=== PATIENT | male | born 1965 | race Caucasian/White ===

== ENCOUNTER 2022-06-01 15:35 | Inpatient (IN) | payer SELFPAY ==
[2022-06-01] MEDS ORDERED: Dextrose 5% in Water 1,000 ML IV PRN (17:20)
[2022-06-01] MEDS ORDERED: Guaifenesin DM 100-10/5 ML UDCUP PO PRN (17:20)
[2022-06-01] MEDS ORDERED: Ondansetron PF 4 MG/2 ML Vial IVP PRN (17:20)
[2022-06-01] MEDS ORDERED: Acetaminophen 325 MG TAB PO PRN (17:20)
[2022-06-01] MEDS ORDERED: Senokot S 8.6-50 MG TAB PO PRN (17:20)
[2022-06-01] MEDS ORDERED: Dextrose 50% Abboject 50 ML SYRINGE SLOW IVP PRN (17:20)
[2022-06-01] MEDS ORDERED: Sodium Chloride 0.9% 1,000 ML IV SCH (17:30)
[2022-06-01 17:37] VITALS: BMI 23.3
[2022-06-01] MEDS ORDERED: Aspirin Chewable 81 MG TAB PO SCH (18:00)
[2022-06-01 19:04] LABS: Anion Gap 15 mmol/L (10-20); BUN (Urea Nitrogen) 33 mg/dL (8.4-25.7); Calc. Creatinine Clearance 46 mL/min (70-130); Calcium 9.8 mg/dL (7.8-10.44); Carbon Dioxide 25 mmol/L (22-29); Chloride 100 mmol/L (98-107); Estimated GFR 40; Glucose 257 mg/dL (70-105); Potassium 4.3 mmol/L (3.5-5.1); Sodium 136 mmol/L (136-145)
[2022-06-01 19:16] LABS: Troponin I 0.341 ng/mL (< 0.028)
[2022-06-01] MEDS: Nitroglycerin 0.4 MG TAB (25 Tab Bottle) SL PRN ×2 (21:00→23:55)
[2022-06-01 21:18] LABS: Troponin I 0.427 ng/mL (< 0.028)
[2022-06-01] MEDS: Enoxaparin Sodium 80 MG/0.8 ML SYRINGE SC SCH ×2 (22:12→22:13)
[2022-06-01] MEDS: Gabapentin 300 MG CAP PO SCH (22:13)
[2022-06-01] MEDS: Insulin Glargine 30 UNITS/0.3 ML VIAL SC SCH (22:14)
[2022-06-01] MEDS: Atorvastatin Calcium 40 MG TAB PO SCH (22:14)
[2022-06-02] MEDS: Morphine 2 MG/ML VIAL SLOW IVP PRN ×2 (01:52→07:20)
[2022-06-02 04:40] LABS: #Basophils 0.1 thou/uL (0.0-0.2); #Eosinphils 0.1 thou/uL (0.0-0.7); #Lymphocytes 1.5 thou/uL (1.20-3.40); #Monocytes 0.9 thou/uL (0.11-0.59); #Neutrophils 6.4 thou/uL (1.40-6.50); %Basophils 1.5 % (0.0-1.0); %Eosinophils 0.8 % (0.0-10.0); %Lymphocytes 16.6 % (21.0-51.0); %Monocytes 10.1 % (0.0-10.0); Hemoglobin 11.8 g/dL (14.0-18.0); Mean Corpuscular HGB CONC 32.6 g/dL (32.0-36.0); Mean Corpuscular Hemoglobin 29.1 pg (27.0-31.0); Mean Corpuscular Volume 89.2 fL (78.0-98.0); Mean Platelet Volume 8.9 fL (7.4-10.4); Platelet Count 236 thou/uL (130-400); RBC Distribution Width 13.5 % (11.5-14.5); Red Blood Cell (RBC) Count 4.07 mill/uL (4.70-6.10)
[2022-06-02 05:04] LABS: ALT (SGPT) 21 U/L (8-55); AST (SGOT) 17 U/L (5-34); Albumin 3.7 g/dL (3.5-5.0); Alkaline Phosphatase 108 U/L (40-110); Anion Gap 20 mmol/L (10-20); BUN (Urea Nitrogen) 33 mg/dL (8.4-25.7); Bilirubin, Total 0.6 mg/dL (0.2-1.2); Calc. Creatinine Clearance 43 mL/min (70-130); Calcium 9.5 mg/dL (7.8-10.44); Carbon Dioxide 21 mmol/L (22-29); Chloride 99 mmol/L (98-107); Cholesterol 148 mg/dl (< 200 Desired); Estimated GFR 37; Globulin 3.7 g/dL (2.4-3.5); Glucose 506 mg/dL (70-105); HDL Cholesterol 49 mg/dL (>60 Neg Risk); LDL Cholesterol, Calculated 78 mg/dL; Potassium 4.3 mmol/L (3.5-5.1); Protein, Total 7.4 g/dL (6.0-8.3); Sodium 136 mmol/L (136-145); Triglycerides 104 mg/dL (Less than 150)
[2022-06-02] MEDS: HumaLOG 300 UNITS/3 ML VIAL SC PRN ×4 (07:02→21:09)
[2022-06-02 08:23] LABS: Bilirubin Negative (Negative); Blood, Urine 1+ (Negative); Clarity Extra Turbid (Clear); Glucose, Urine (Dipstick) Greater than 1000 mg/dL (Negative); Ketone, Urine 60 mg/dL (Negative); Leukocyte 500 Leu/uL (Negative); Nitrite Negative (Negative); Protein, Urine (Dipstick) 20 mg/dL (Neg-Trace); Specific Gravity, Urine 1.013 (1.002-1.036); Squamous Epithelial 0-3 HPF (0-3); Urobilinogen Normal mg/dL (Less than 2); WBC/HPF Greater than 50 HPF (0-3); pH, Urine 5.5 (5.0-9.0)
[2022-06-02 08:24] LABS: Bacteria/HPF Rare-Few HPF (None Seen); Yeast-Budding 1+ HPF (None Seen)
[2022-06-02 08:25] LABS: Yeast-Hyphae Rare HPF (None Seen)
[2022-06-02 08:26] LABS: Urine Culture Reflex Yes Yes
[2022-06-02] MEDS ORDERED: Iopamidol 370 76% 100 ML VIAL ONE (08:52)
[2022-06-02] MEDS ORDERED: Enoxaparin Sodium 40 MG/0.4 ML SYRINGE SC SCH (09:00)
[2022-06-02] MEDS: Gabapentin 300 MG CAP PO SCH ×2 (09:07→21:08)
[2022-06-02] MEDS: Carvedilol 3.125 MG TAB PO SCH ×2 (09:08→17:27)
[2022-06-02] MEDS: Aspirin Chewable 81 MG TAB PO SCH (09:08)
[2022-06-02] MEDS: Insulin Glargine 30 UNITS/0.3 ML VIAL SC SCH ×2 (09:09→21:10)
[2022-06-02] MEDS ORDERED: Lidocaine 1% MPF 2 ML VIAL ONE (10:52)
[2022-06-02] MEDS ORDERED: Morphine 4 MG/ML VIAL ONE (12:19)
[2022-06-02] MEDS ORDERED: Metoprolol Tartrate 5 MG/5 ML VIAL ONE (12:35)
[2022-06-02] MEDS: Atorvastatin Calcium 40 MG TAB PO SCH (21:08)
[2022-06-03 04:53] LABS: Anion Gap 13 mmol/L (10-20); BUN (Urea Nitrogen) 24 mg/dL (8.4-25.7); Calc. Creatinine Clearance 50 mL/min (70-130); Calcium 9.3 mg/dL (7.8-10.44); Carbon Dioxide 25 mmol/L (22-29); Chloride 111 mmol/L (98-107); Estimated GFR 44; Glucose 133 mg/dL (70-105); Potassium 3.8 mmol/L (3.5-5.1); Sodium 145 mmol/L (136-145)
[2022-06-03 05:13] LABS: Band 1 % (5-11); Eosinophils 6 % (0-10); Hypochromia SLIGHT = 6-15 cells (100X) (0-5/hpf); Lymphocytes 17 % (21-51); MDiff Complete? YES; Mean Corpuscular HGB CONC 32.7 g/dL (32.0-36.0); Mean Corpuscular Hemoglobin 29.4 pg (27.0-31.0); Mean Corpuscular Volume 89.9 fL (78.0-98.0); Mean Platelet Volume 8.6 fL (7.4-10.4); Monocytes 13 % (0-10); Neutrophil 63 % (42-75); Platelet Count 220 thou/uL (130-400); Platelet Morphology Comment Appears Adequate; RBC Distribution Width 13.6 % (11.5-14.5); Red Blood Cell (RBC) Count 3.73 mill/uL (4.70-6.10); White Blood Cell (WBC) Count 7.7 thou/uL (4.8-10.8)
[2022-06-03] MEDS ORDERED: Carvedilol 3.125 MG TAB PO SCH (07:00)
[2022-06-03] MEDS: Carvedilol 6.25 MG TAB PO SCH ×2 (09:15→17:25)
[2022-06-03] MEDS: Aspirin Chewable 81 MG TAB PO SCH (09:15)
[2022-06-03] MEDS: Gabapentin 300 MG CAP PO SCH ×2 (09:15→22:19)
[2022-06-03] MEDS: Insulin Glargine 30 UNITS/0.3 ML VIAL SC SCH ×2 (09:16→22:20)
[2022-06-03] MEDS: HumaLOG 300 UNITS/3 ML VIAL SC PRN ×3 (11:33→23:55)
[2022-06-03] MEDS: Atorvastatin Calcium 40 MG TAB PO SCH (22:19)
[2022-06-04 04:52] LABS: Anion Gap 12 mmol/L (10-20); BUN (Urea Nitrogen) 26 mg/dL (8.4-25.7); Calc. Creatinine Clearance 41 mL/min (70-130); Carbon Dioxide 26 mmol/L (22-29); Chloride 107 mmol/L (98-107); Estimated GFR 35; Glucose 167 mg/dL (70-105); Potassium 3.8 mmol/L (3.5-5.1); Sodium 141 mmol/L (136-145)
[2022-06-04 05:12] LABS: Band 2 % (5-11); Eosinophils 6 % (0-10); Hemoglobin 10.3 g/dL (14.0-18.0); Lymphocytes 29 % (21-51); MDiff Complete? YES; Mean Corpuscular HGB CONC 33.2 g/dL (32.0-36.0); Mean Corpuscular Hemoglobin 29.3 pg (27.0-31.0); Mean Corpuscular Volume 88.2 fL (78.0-98.0); Mean Platelet Volume 8.3 fL (7.4-10.4); Monocytes 14 % (0-10); Neutrophil 45 % (42-75); Platelet Count 214 thou/uL (130-400); Platelet Morphology Comment Appears Adequate; RBC Distribution Width 13.4 % (11.5-14.5); RBC Morphology Normal; Reactive Lymphocytes 2 % (0-10); Red Blood Cell (RBC) Count 3.52 mill/uL (4.70-6.10); White Blood Cell (WBC) Count 6.7 thou/uL (4.8-10.8)
[2022-06-04] MEDS ORDERED: Diazepam 5 MG TAB PO PRN (08:27)
[2022-06-04] MEDS ORDERED: Communication Order-Pharmacy FS SCH (08:27)
[2022-06-04] MEDS: Carvedilol 6.25 MG TAB PO SCH ×2 (09:47→17:48)
[2022-06-04] MEDS: Gabapentin 300 MG CAP PO SCH ×2 (09:47→21:10)
[2022-06-04] MEDS: Aspirin Chewable 81 MG TAB PO SCH (09:47)
[2022-06-04] MEDS: Insulin Glargine 30 UNITS/0.3 ML VIAL SC SCH ×2 (10:12→21:10)
[2022-06-04] MEDS: HumaLOG 300 UNITS/3 ML VIAL SC PRN ×2 (11:20→21:11)
[2022-06-04] MEDS: Atorvastatin Calcium 40 MG TAB PO SCH (21:10)
[2022-06-05] MEDS ORDERED: Dextrose 50% Abboject 50 ML SYRINGE ONE (04:11)
[2022-06-05] MEDS ORDERED: Dextrose 50% Abboject 50 ML SYRINGE SLOW IVP SCH (04:15)
[2022-06-05 04:54] LABS: Anion Gap 12 mmol/L (10-20); BUN (Urea Nitrogen) 27 mg/dL (8.4-25.7); Calc. Creatinine Clearance 45 mL/min (70-130); Calcium 9.3 mg/dL (7.8-10.44); Carbon Dioxide 27 mmol/L (22-29); Chloride 106 mmol/L (98-107); Estimated GFR 39; Potassium 3.5 mmol/L (3.5-5.1); Sodium 141 mmol/L (136-145)
[2022-06-05 05:07] LABS: Glucose 29 mg/dL (70-105)
[2022-06-05] MEDS: Carvedilol 6.25 MG TAB PO SCH (05:45)
[2022-06-05] MEDS ORDERED: fentaNYL Citrate/PF 100 MCG/2 ML SYRINGE ONE (05:58)
[2022-06-05] MEDS ORDERED: EPINEPHrine 1 MG/ML AMP ONE (05:59)
[2022-06-05] MEDS ORDERED: Midazolam HCl 5 mg/5 ml Vial ONE (05:59)
[2022-06-05] MEDS ORDERED: niCARdipine 25 MG/10 ML VIAL ONE (05:59)
[2022-06-05] MEDS ORDERED: Esmolol 100 MG/10 ML VIAL ONE (05:59)
[2022-06-05] MEDS ORDERED: Norepinephrine 4 MG/4 ML VIAL ONE (05:59)
[2022-06-05] MEDS ORDERED: Rocuronium Bromide 50 MG/5 ML VIAL ONE ×2 (06:00→06:08)
[2022-06-05] MEDS ORDERED: Insulin Regular 300 UNITS/3 ML VIAL ONE ×2 (06:00→06:08)
[2022-06-05] MEDS ORDERED: PHENYLEPHRINE-NS 100 MCG/ML 10 ML SYRINGE ONE (06:38)
[2022-06-05] MEDS ORDERED: Dexamethasone 4 mg/ml Vial ONE (06:38)
[2022-06-05] MEDS ORDERED: Bupivacaine/Epinephrine 0.25% 30 ML VIAL ONE (06:38)
[2022-06-05] MEDS ORDERED: Albumin 5% 500 ML ONE (06:38)
[2022-06-05] MEDS ORDERED: Heparin 10,000 UNITS/1 ML VIAL 30,000 UNITS in Sodium Chloride 0.9% 1,000 ML FS SCH (07:00)
[2022-06-05] MEDS ORDERED: Heparin 1,000 UNITS/ML VIAL ONE (07:04)
[2022-06-05] MEDS ORDERED: CEFAZOLIN 2 GM in Sodium Chloride 0.9% 100 ML IVPB SCH (07:30)
[2022-06-05] MEDS ORDERED: Cardioplegic Soln 1,000 ML BAG ONE (07:39)
[2022-06-05] MEDS ORDERED: Papaverine 60 MG/2 ML VIAL ONE (07:39)
[2022-06-05] MEDS ORDERED: PROPOFOL 200 MG/20 ML VIAL ONE ×2 (07:39→12:49)
[2022-06-05] MEDS ORDERED: Rocuronium Bromide 10 MG/ML (10ML VIAL) ONE ×2 (07:39→12:49)
[2022-06-05] MEDS ORDERED: Lidocaine 2% PF 100 mg/5 ml Syringe ONE (07:39)
[2022-06-05] MEDS ORDERED: Magnesium Sulfate 1 GM/2 ML VIAL ONE (07:39)
[2022-06-05] MEDS ORDERED: Mannitol 12.5 GM/50 ML ONE (07:39)
[2022-06-05] MEDS ORDERED: Sodium Bicarb 50 MEQ/50 ML Abboject 8.4% SYRINGE ONE (07:39)
[2022-06-05] MEDS ORDERED: Thrombin 5000 UNITS/5 ML VIAL ONE (07:39)
[2022-06-05] MEDS ORDERED: Heparin 30,000 units/30 ml VIAL ONE (07:39)
[2022-06-05] MEDS ORDERED: Aminocaproic Acid 5 GM/20 ML VIAL ONE (07:39)
[2022-06-05] MEDS ORDERED: Lidocaine 1% MPF 2 ML VIAL ONE ×2 (07:39→12:49)
[2022-06-05] MEDS ORDERED: Protamine Sulfate 250 MG/25 ML VIAL ONE (07:39)
[2022-06-05] MEDS ORDERED: Calcium Chloride 1 GM/10 ML Abboject SYRINGE ONE (07:39)
[2022-06-05] MEDS ORDERED: Heparin 5,000 UNITS/ML VIAL ONE (07:39)
[2022-06-05 08:50] LABS: Band 1 % (5-11); Eosinophils 11 % (0-10); Hemoglobin 11.5 g/dL (14.0-18.0); Lymphocytes 29 % (21-51); MDiff Complete? YES; Mean Corpuscular HGB CONC 32.9 g/dL (32.0-36.0); Mean Corpuscular Hemoglobin 29.6 pg (27.0-31.0); Mean Platelet Volume 8.5 fL (7.4-10.4); Monocytes 7 % (0-10); Neutrophil 42 % (42-75); Ovalocytes SLIGHT = 2-5 cells (100X) (0-1/hpf); Platelet Count 260 thou/uL (130-400); Platelet Morphology Comment Appears Adequate; Polychromasia SLIGHT = 2-3 cells (100X) (0-2/hpf); RBC Distribution Width 13.4 % (11.5-14.5); Reactive Lymphocytes 6 % (0-10); Red Blood Cell (RBC) Count 3.87 mill/uL (4.70-6.10)
[2022-06-05] MEDS ORDERED: Dexmedetomidine 200 MCG/2 ML VIAL ONE (09:21)
[2022-06-05] MEDS ORDERED: hydrALAZINE 20 MG/ML VIAL SLOW IVP PRN (11:00)
[2022-06-05] MEDS ORDERED: Acetaminophen 325 MG TAB PO PRN (11:00)
[2022-06-05] MEDS ORDERED: Ondansetron PF 4 MG/2 ML Vial IVP PRN (11:00)
[2022-06-05] MEDS ORDERED: Mag-Al 1200 mg/1200 mg/30 ML UDCUP PO PRN (11:00)
[2022-06-05] MEDS ORDERED: Bisacodyl 5 MG TAB PO PRN (11:00)
[2022-06-05] MEDS ORDERED: Post-Op Insulin Drip Protocol IVPB ONE (11:00)
[2022-06-05] MEDS ORDERED: Morphine 2 MG/ML VIAL SLOW IVP PRN (11:00)
[2022-06-05] MEDS ORDERED: NOREPINEPHRINE 8 MG/250 ML-D5W 250 ML IVPB PRN (11:00)
[2022-06-05] MEDS ORDERED: Bisacodyl 10 MG SUPP PR PRN (11:00)
[2022-06-05] MEDS ORDERED: Magnesium 2 GM/50 ML(in water) 2 GM in Premix Bag 1 BAG IVPB SCH (11:00)
[2022-06-05] MEDS ORDERED: Hetastarch 6% 500 ML 500 ML IVPB PRN (11:00)
[2022-06-05] MEDS ORDERED: D5 1/2 NS w/20 mEq KCL 1,000 ML IV SCH (11:00)
[2022-06-05] MEDS ORDERED: Guaifenesin DM 100-10/5 ML UDCUP PO PRN (11:00)
[2022-06-05] MEDS ORDERED: Potassium Chloride 20 MEQ/100 ML PREMIX BAG IVPB PRN (11:00)
[2022-06-05] MEDS ORDERED: Nitroglycerin 50 MG/250 ML BOT 250 ML IVPB PRN (11:00)
[2022-06-05] MEDS ORDERED: Promethazine HCl 25 MG/ML VIAL IM PRN (11:00)
[2022-06-05] MEDS ORDERED: Fentanyl 100 MCG/2 ML VIAL SLOW IVP PRN (11:00)
[2022-06-05] MEDS ORDERED: Insulin Regular 300 UNITS/3 ML VIAL SC PRN (11:30)
[2022-06-05] MEDS ORDERED: Dextrose 50% Abboject 50 ML SYRINGE SLOW IVP PRN (11:30)
[2022-06-05] MEDS ORDERED: Dextrose 5% in Water 1,000 ML IV PRN (11:30)
[2022-06-05] MEDS ORDERED: HUMULIN R 100 UNITS in Sodium Chloride 0.9% 100 ML IVPB SCH (11:30)
[2022-06-05 11:35] LABS: ALV-art Gradient 201.075 mmHg (0-20); Base Excess (BEa) -4.2 mEq/L (-2.0 to +3.0); CO2 Tension 38.9 mmHg (35.0-45.0); Calcium, Ionized (arterial) 1.13 mmol/L (1.12-1.30); Carboxyhemoglobin (COHb) 0.3 gm% (0.0-3.0); Hemoglobin (Hb) 10.9 g/dL (14.0-18.0); O2 Tension (PaO2), arterial 106.8 mmHg (80.0-100.0); Potassium - ABG Lab 4.48 mmol/L (3.70-5.30); Puncture Site Arterial Line; pH, Arterial 7.35 (7.35-7.45)
[2022-06-05 11:54] LABS: INR-International Normal Ratio 1.2; PTT 30.1 sec (22.9-36.1); Prothrombin Time 14.8 sec (12.0-14.7)
[2022-06-05 12:01] LABS: #Basophils 0.1 thou/uL (0.0-0.2); #Eosinphils 0.1 thou/uL (0.0-0.7); #Monocytes 1.3 thou/uL (0.11-0.59); #Neutrophils 11.5 thou/uL (1.40-6.50); %Basophils 0.4 % (0.0-1.0); %Eosinophils 0.4 % (0.0-10.0); %Lymphocytes 7.4 % (21.0-51.0); %Monocytes 9.6 % (0.0-10.0); %Neutrophils 82.1 % (42.0-75.0); Hemoglobin 10.2 g/dL (14.0-18.0); Mean Corpuscular HGB CONC 32.9 g/dL (32.0-36.0); Mean Corpuscular Hemoglobin 29.5 pg (27.0-31.0); Mean Corpuscular Volume 89.5 fL (78.0-98.0); Mean Platelet Volume 8.6 fL (7.4-10.4); Platelet Count 181 thou/uL (130-400); RBC Distribution Width 13.5 % (11.5-14.5); Red Blood Cell (RBC) Count 3.46 mill/uL (4.70-6.10)
[2022-06-05 12:10] LABS: Anion Gap 12 mmol/L (10-20); BUN (Urea Nitrogen) 22 mg/dL (8.4-25.7); Calc. Creatinine Clearance 57 mL/min (70-130); Calcium 7.6 mg/dL (7.8-10.44); Carbon Dioxide 21 mmol/L (22-29); Chloride 112 mmol/L (98-107); Estimated GFR 52; Glucose 180 mg/dL (70-105); Potassium 4.5 mmol/L (3.5-5.1); Sodium 140 mmol/L (136-145)
[2022-06-05] MEDS: Fentanyl 100 MCG/2 ML VIAL SLOW IVP PRN ×2 (12:46→15:35)
[2022-06-05] MEDS ORDERED: Dexamethasone 20 MG/5 ML VIAL ONE (12:49)
[2022-06-05] MEDS ORDERED: Ondansetron PF 4 MG/2 ML Vial ONE (12:49)
[2022-06-05] MEDS: CEFAZOLIN 2 GM in Sodium Chloride 0.9% 100 ML IVPB SCH ×2 (15:36→23:17)
[2022-06-05 17:40] LABS: Potassium 4.1 mmol/L (3.5-5.1)
[2022-06-05] MEDS: HYDROcodone/Acetaminophen 5/325 mg Tablet PO PRN ×2 (18:30→21:02)
[2022-06-05] MEDS: Cyclobenzaprine 10 MG TAB PO PRN (18:32)
[2022-06-05] MEDS ORDERED: Famotidine/PF 20 mg/2ml Vial SLOW IVP SCH (21:00)
[2022-06-05] MEDS: Atorvastatin Calcium 40 MG TAB PO SCH (21:01)
[2022-06-06 04:48] LABS: #Lymphocytes 0.9 thou/uL (1.20-3.40); #Monocytes 1.3 thou/uL (0.11-0.59); %Basophils 0.3 % (0.0-1.0); %Eosinophils 0.1 % (0.0-10.0); %Monocytes 9.9 % (0.0-10.0); %Neutrophils 82.7 % (42.0-75.0); Hemoglobin 9.6 g/dL (14.0-18.0); Mean Corpuscular HGB CONC 32.7 g/dL (32.0-36.0); Mean Corpuscular Hemoglobin 29.9 pg (27.0-31.0); Mean Corpuscular Volume 91.6 fL (78.0-98.0); Mean Platelet Volume 9.1 fL (7.4-10.4); Platelet Count 163 thou/uL (130-400); RBC Distribution Width 13.7 % (11.5-14.5); Red Blood Cell (RBC) Count 3.21 mill/uL (4.70-6.10); White Blood Cell (WBC) Count 13.3 thou/uL (4.8-10.8)
[2022-06-06] MEDS: HYDROcodone/Acetaminophen 5/325 mg Tablet PO PRN ×4 (05:00→21:39)
[2022-06-06 05:11] LABS: Anion Gap 10 mmol/L (10-20); BUN (Urea Nitrogen) 23 mg/dL (8.4-25.7); Calc. Creatinine Clearance 54 mL/min (70-130); Calcium 8.3 mg/dL (7.8-10.44); Carbon Dioxide 24 mmol/L (22-29); Chloride 112 mmol/L (98-107); Estimated GFR 48; Glucose 130 mg/dL (70-105); Potassium 4.5 mmol/L (3.5-5.1); Sodium 141 mmol/L (136-145)
[2022-06-06] MEDS: CEFAZOLIN 2 GM in Sodium Chloride 0.9% 100 ML IVPB SCH (06:07)
[2022-06-06] MEDS ORDERED: Dextrose 50% Abboject 50 ML SYRINGE SLOW IVP PRN (07:21)
[2022-06-06] MEDS ORDERED: Dextrose 5% in Water 1,000 ML IV PRN (07:21)
[2022-06-06] MEDS ORDERED: Insulin Regular 300 UNITS/3 ML VIAL SC PRN (07:38)
[2022-06-06] MEDS ORDERED: Metoclopramide HCl 10 MG/2 ML VIAL IVP SCH (07:45)
[2022-06-06] MEDS: Aspirin Chewable 81 MG TAB PO SCH (08:35)
[2022-06-06] MEDS: Cyclobenzaprine 10 MG TAB PO PRN ×3 (08:35→21:40)
[2022-06-06] MEDS: Magnesium 2 GM/50 ML(in water) 2 GM in Premix Bag 1 BAG IVPB SCH (08:35)
[2022-06-06] MEDS ORDERED: Insulin Glargine 30 UNITS/0.3 ML VIAL SC PRN (11:25)
[2022-06-06] MEDS: HumaLOG 300 UNITS/3 ML VIAL SC PRN ×3 (13:32→19:45)
[2022-06-06] MEDS ORDERED: Zolpidem Tartrate 5 MG TAB PO PRN (14:45)
[2022-06-06] MEDS ORDERED: Mineral Oil ENEMA PR PRN (14:45)
[2022-06-06] MEDS ORDERED: Guaifenesin DM 100-10/5 ML UDCUP PO PRN (14:45)
[2022-06-06] MEDS ORDERED: Bisacodyl 10 MG SUPP PR PRN (14:45)
[2022-06-06] MEDS ORDERED: Milk Of Magnesia 30 ML UDCUP PO PRN (14:45)
[2022-06-06] MEDS ORDERED: diphenhydrAMINE 25 MG CAP PO PRN (14:45)
[2022-06-06] MEDS ORDERED: Bisacodyl 5 MG TAB PO PRN (14:45)
[2022-06-06] MEDS ORDERED: Mag-Al 1200 mg/1200 mg/30 ML UDCUP PO PRN (14:45)
[2022-06-06] MEDS: Metoclopramide HCl 10 MG/2 ML VIAL IVP SCH ×3 (15:23→23:28)
[2022-06-06] MEDS: Atorvastatin Calcium 40 MG TAB PO SCH (19:46)
[2022-06-07] MEDS: Metoclopramide HCl 10 MG/2 ML VIAL IVP SCH ×3 (05:03→17:25)
[2022-06-07] MEDS: Fentanyl 100 MCG/2 ML VIAL SLOW IVP PRN (08:24)
[2022-06-07] MEDS: Magnesium 2 GM/50 ML(in water) 2 GM in Premix Bag 1 BAG IVPB SCH (08:26)
[2022-06-07] MEDS: Aspirin Chewable 81 MG TAB PO SCH (08:26)
[2022-06-07] MEDS: Cyclobenzaprine 10 MG TAB PO PRN (11:08)
[2022-06-07] MEDS: HYDROcodone/Acetaminophen 5/325 mg Tablet PO PRN ×2 (11:08→20:49)
[2022-06-07] MEDS: HumaLOG 300 UNITS/3 ML VIAL SC PRN ×3 (11:53→20:59)
[2022-06-07] MEDS ORDERED: Insulin Glargine 30 UNITS/0.3 ML VIAL SC SCH ×2 (12:45→21:00)
[2022-06-07] MEDS ORDERED: Carvedilol 3.125 MG TAB PO SCH (17:00)
[2022-06-07] MEDS: Atorvastatin Calcium 40 MG TAB PO SCH (20:49)
[2022-06-08] MEDS: Metoclopramide HCl 10 MG/2 ML VIAL IVP SCH ×2 (01:48→05:40)
[2022-06-08 04:58] LABS: Anion Gap 14 mmol/L (10-20); BUN (Urea Nitrogen) 30 mg/dL (8.4-25.7); Calc. Creatinine Clearance 42 mL/min (70-130); Calcium 8.7 mg/dL (7.8-10.44); Carbon Dioxide 22 mmol/L (22-29); Chloride 102 mmol/L (98-107); Estimated GFR 36; Glucose 366 mg/dL (70-105); Potassium 4.2 mmol/L (3.5-5.1); Sodium 134 mmol/L (136-145)
[2022-06-08 05:27] LABS: Band 6 % (5-11); Eosinophils 5 % (0-10); Hemoglobin 8.7 g/dL (14.0-18.0); Lymphocytes 15 % (21-51); MDiff Complete? YES; Mean Corpuscular HGB CONC 34.4 g/dL (32.0-36.0); Mean Corpuscular Hemoglobin 30.8 pg (27.0-31.0); Mean Corpuscular Volume 89.6 fL (78.0-98.0); Monocytes 15 % (0-10); Neutrophil 58 % (42-75); Platelet Count 146 thou/uL (130-400); RBC Distribution Width 13.4 % (11.5-14.5); Red Blood Cell (RBC) Count 2.84 mill/uL (4.70-6.10); White Blood Cell (WBC) Count 8.7 thou/uL (4.8-10.8)
[2022-06-08] MEDS: HumaLOG 300 UNITS/3 ML VIAL SC PRN ×2 (05:40→17:10)
[2022-06-08] MEDS: Cyclobenzaprine 10 MG TAB PO PRN ×2 (05:43→13:02)
[2022-06-08] MEDS ORDERED: traMADol HCl 50 MG TAB PO PRN ×2 (07:43)
[2022-06-08] MEDS: Aspirin Chewable 81 MG TAB PO SCH (10:34)
[2022-06-08] MEDS: Carvedilol 6.25 MG TAB PO SCH ×2 (10:35→16:19)
[2022-06-08] MEDS: Clopidogrel Bisulfate 75 MG TAB PO SCH (10:35)
[2022-06-08] MEDS: Insulin Glargine 30 UNITS/0.3 ML VIAL SC SCH ×2 (10:37→20:41)
[2022-06-08] MEDS: Sodium Chloride 0.9% 1,000 ML IV SCH (16:32)
[2022-06-08] MEDS: Atorvastatin Calcium 40 MG TAB PO SCH (20:41)
[2022-06-09 05:14] LABS: Anion Gap 16 mmol/L (10-20); BUN (Urea Nitrogen) 24 mg/dL (8.4-25.7); Calc. Creatinine Clearance 51 mL/min (70-130); Calcium 8.6 mg/dL (7.8-10.44); Carbon Dioxide 21 mmol/L (22-29); Chloride 102 mmol/L (98-107); Estimated GFR 41; Glucose 359 mg/dL (70-105); Potassium 4.4 mmol/L (3.5-5.1); Sodium 135 mmol/L (136-145)
[2022-06-09 05:17] LABS: Band 3 % (5-11); Eosinophils 8 % (0-10); Hemoglobin 8.8 g/dL (14.0-18.0); Lymphocytes 12 % (21-51); MDiff Complete? YES; Mean Corpuscular HGB CONC 33.1 g/dL (32.0-36.0); Mean Corpuscular Hemoglobin 29.6 pg (27.0-31.0); Mean Corpuscular Volume 89.4 fL (78.0-98.0); Mean Platelet Volume 9.3 fL (7.4-10.4); Monocytes 14 % (0-10); Neutrophil 63 % (42-75); Platelet Count 175 thou/uL (130-400); RBC Distribution Width 13.2 % (11.5-14.5); Red Blood Cell (RBC) Count 2.98 mill/uL (4.70-6.10); White Blood Cell (WBC) Count 7.2 thou/uL (4.8-10.8)
[2022-06-09] MEDS: HumaLOG 300 UNITS/3 ML VIAL SC PRN ×3 (06:09→18:08)
[2022-06-09] MEDS: Aspirin Chewable 81 MG TAB PO SCH (09:21)
[2022-06-09] MEDS: Carvedilol 6.25 MG TAB PO SCH ×2 (09:21→18:09)
[2022-06-09] MEDS: Clopidogrel Bisulfate 75 MG TAB PO SCH (09:21)
[2022-06-09] MEDS: Insulin Glargine 30 UNITS/0.3 ML VIAL SC SCH ×2 (09:22→21:42)
[2022-06-09] MEDS: Cyclobenzaprine 10 MG TAB PO PRN ×2 (13:35→21:41)
[2022-06-09] MEDS: Sodium Chloride 0.9% 1,000 ML IV SCH (13:35)
[2022-06-09] MEDS: Atorvastatin Calcium 40 MG TAB PO SCH (21:42)
[2022-06-10] MEDS: Aspirin Chewable 81 MG TAB PO SCH (10:03)
[2022-06-10] MEDS: Carvedilol 6.25 MG TAB PO SCH ×2 (10:03→19:20)
[2022-06-10] MEDS: Clopidogrel Bisulfate 75 MG TAB PO SCH (10:04)
[2022-06-10] MEDS: Insulin Glargine 30 UNITS/0.3 ML VIAL SC SCH (12:31)
[2022-06-10 16:35] VITALS: TEMP 100.9
[2022-06-10 19:20] VITALS: BP 141/69
== END 2022-06-10 18:25 | disposition home or self-care (01) | DRG 234 ==
LOC: 2NO 16:54 → CCU 06-05 07:22 → 2NO 06-07 18:17
PROVIDERS: ADMIT Thoracic Surgery (Cardiothoracic Vascular Surgery); ATTEND Internal Medicine
PROC: 4A023N7 Measurement of Cardiac Sampling and Pressure, Left Heart, Percutaneous Approach (ICD-10-PCS; 2022-06-02)
PROC: B2111ZZ Fluoroscopy of Multiple Coronary Arteries using Low Osmolar Contrast (ICD-10-PCS; 2022-06-02)
PROC: B2151ZZ Fluoroscopy of Left Heart using Low Osmolar Contrast (ICD-10-PCS; 2022-06-02)
PROC: 021209W Bypass Coronary Artery, Three Arteries from Aorta with Autologous Venous Tissue, Open Approach (ICD-10-PCS; principal; 2022-06-05)
PROC: 02100Z9 Bypass Coronary Artery, One Artery from Left Internal Mammary, Open Approach (ICD-10-PCS; 2022-06-05)
PROC: 06BP4ZZ Excision of Right Saphenous Vein, Percutaneous Endoscopic Approach (ICD-10-PCS; 2022-06-05)
PROC: 5A1221Z Performance of Cardiac Output, Continuous (ICD-10-PCS; 2022-06-05)
PROC: 02L70CK Occlusion of Left Atrial Appendage with Extraluminal Device, Open Approach (ICD-10-PCS; 2022-06-05)
DX: I21.4 Non-ST elevation (NSTEMI) myocardial infarction (principal); I13.0 Hypertensive heart and chronic kidney disease with heart failure and stage 1 through stage 4 chronic kidney disease, or unspecified chronic kidney disease; E87.1 Hypo-osmolality and hyponatremia; Z78.1 Physical restraint status; Z20.822 Contact with and (suspected) exposure to COVID-19; E78.5 Hyperlipidemia, unspecified; E11.65 Type 2 diabetes mellitus with hyperglycemia; N18.30 Chronic kidney disease, stage 3 unspecified; I50.9 Heart failure, unspecified; I25.5 Ischemic cardiomyopathy; E11.22 Type 2 diabetes mellitus with diabetic chronic kidney disease; I25.110 Atherosclerotic heart disease of native coronary artery with unstable angina pectoris; M54.2 Cervicalgia; Z79.899 Other long term (current) drug therapy; Z79.82 Long term (current) use of aspirin; Z79.4 Long term (current) use of insulin; Z80.0 Family history of malignant neoplasm of digestive organs; Z82.49 Family history of ischemic heart disease and other diseases of the circulatory system; Z89.429 Acquired absence of other toe(s), unspecified side; Z98.890 Other specified postprocedural states; Z95.5 Presence of coronary angioplasty implant and graft
CPT/HCPCS: 36415; 36416; 36430; 71045; 80048; 80053; 80061; 81001; 82805; 84484; 85025; 85610; 85730; 86850; 86900; 86901; 87086; 93005; 93010; 93306; 93458; 93798; 93880; 94002; 94150; 94760; 97139; 99152; 99153; C1751; C1769; J0171; J0690; J1100; J1642; J1644; J1650; J1815; J2001; J2150; J2250; J2270; J2405; J2440; J2704; J2720; J2765; J3010; J3370; J3475; J3480; J3490; J7050; J7999; P9045; Q9967; S0017; S0028; U0003; U0005